=== PATIENT | female | born 1945 | race Caucasian/White ===

== ENCOUNTER → 2022-06-20 09:56 | Outpatient (CLI) | payer MEDICARE, OTHER, SELFPAY ==
--- NOTE | 2022-06-20 10:01 | DI.RAD.S_ITS ---
PROCEDURE: XR LUMBAR SPINE MIN 4V INDICATIONS: BACK PAIN TECHNIQUE: 5 views of the lumbar spine were acquired, including bilateral oblique views. COMPARISON: Outside Facility, RG, MRI L-SPINE W/O CONTRAST, 11/19/2020, 13:28. FINDINGS: Bones: There are 5 [id number] lumbar vertebral bodies. No compression deformities. Severe degenerative changes including intervertebral disc space narrowing, facet sclerosis and flowing syndesmophytes are present at all levels of the lumbar spine. Soft tissues: Overlying bowel gas pattern is normal. No suspicious soft tissue calcifications. Oblique images: The pars interarticularis are difficult to characterize given the extensive degenerative changes; however no definite defects are visualized. IMPRESSION: 1. 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 2. Limited evaluation of the pars interarticularis bilaterally given extensive degenerative change. 3. No compression deformities. Dictated by: Yasmeen Chase M.D. on 06/20/2022 at 10:39 Approved by: Yasmeen Chase M.D. on 06/20/2022 at 10:44
== END ==
PROVIDERS: PCP Student in an Organized Health Care Education/Training Program; Referring Provider Physical Medicine & Rehabilitation; Visit Provider Physical Medicine & Rehabilitation
DX: M47.816 Spondylosis without myelopathy or radiculopathy, lumbar region (principal); M41.26 Other idiopathic scoliosis, lumbar region; M48.062 Spinal stenosis, lumbar region with neurogenic claudication; M54.9 Dorsalgia, unspecified
CPT/HCPCS: 72110; 99214

== ENCOUNTER → 2023-08-20 19:44 | Outpatient (CLI) | payer MEDICARE, OTHER, SELFPAY ==
--- NOTE | 2023-08-20 | DI.MRI.S_ITS ---
PROCEDURE: MR CERVICAL SPINE WO CON INDICATIONS: CERVICAL PAIN TECHNIQUE: Noncontrast sagittal T1 spin echo and T2 fast spin echo, sagittal STIR, foraminal oblique sagittal T2 fast spin echo, and axial gradient echo or T2 fast spin echo through the cervical spine. COMPARISON: None. FINDINGS: Image quality: Excellent. Alignment and Curvature: Trace anterolisthesis of C6 on C7 and C7 on T1. Bone Marrow: Marrow demonstrates normal overall signal. Spinal Cord: Visualized spinal cord has normal size and signal. No cerebellar tonsillar herniation. Paraspinous Soft Tissues: No paravertebral masses. Prevertebral soft tissues are normal in thickness. C2-C3: Facet hypertrophy. No canal stenosis or foraminal stenosis. C3-C4: Disc bulge. AP diameter of the central canal is 10.9 mm. Bilateral uncovertebral joint hypertrophy. Prominent left facet hypertrophy. Moderate to severe left foraminal narrowing with a degree of left foraminal C4 nerve root impingement. C4-C5: Mild posterior osteophyte with minimal superimposed central posterior disc protrusion. AP diameter of the central canal is 9.8 mm. Left uncovertebral joint hypertrophy. Prominent left facet hypertrophy. No significant right foraminal narrowing. Severe left foraminal narrowing with left foraminal C5 nerve root impingement. C5-C6: Posterior osteophyte. No canal stenosis. Bilateral uncovertebral joint hypertrophy. Moderate right foraminal narrowing. Moderate to severe left foraminal narrowing with left foraminal C6 nerve root impingement. C6-C7: Chronic disc height loss. Trace anterolisthesis of C6 on C7. Bilateral facet hypertrophy. No significant canal stenosis or significant foraminal stenosis identified. C7-T1: Trace anterolisthesis of C7 on T1. Facet hypertrophy. No canal stenosis or significant foraminal stenosis. IMPRESSION: 1. Diffuse underlying spondylitic change. Findings include multilevel uncovertebral joint hypertrophy and facet arthropathy. There is multilevel prominent left facet arthropathy. 2. There is mild canal stenosis at C4-C5. No canal stenosis at other levels. 3. Significant multilevel foraminal narrowing as described above. Findings include moderate to severe left foraminal narrowing at C3-C4, severe left foraminal narrowing at C4-C5, and moderate right foraminal narrowing plus moderate to severe left foraminal narrowing at C5-C6. Dictated by: Shahbaz Garcia M.D. on 08/21/2023 at 9:24 Approved by: Shahbaz Garcia M.D. on 08/21/2023 at 9:33
== END ==
PROVIDERS: PCP Student in an Organized Health Care Education/Training Program; Referring Provider Physical Medicine & Rehabilitation; Visit Provider Physical Medicine & Rehabilitation
DX: M47.812 Spondylosis without myelopathy or radiculopathy, cervical region (principal); M48.02 Spinal stenosis, cervical region
CPT/HCPCS: 72141